=== PATIENT | female | born 1950 | race Caucasian/White ===

== ENCOUNTER 2017-09-01 16:59 | Day surgery (SDC) | payer BC ==
[2017-09-01] MEDS ORDERED: DIPH/PERTUSS(ACELL)/TETANUS VAC/PF 0.5 ML SYR (>=10YO) IM ONE (18:10)
[2017-09-01] MEDS ORDERED: ACETAMINOPHEN 325 MG TABLET PO ONE (18:10)
[2017-09-01] MEDS ORDERED: LIDOCAINE 1% INJ-PF (10 MG/ML) 30 ML SDV INJ ONE (18:32)
--- NOTE | 2017-09-01 18:32 | RADIOLOGY REPORT (SQ) ---
EXAM DESCRIPTION: ELBOW RIGHT OVER 2 VIEWS COMPLETED DATE/TIME: 09/01/2017 6:22 pm REASON FOR STUDY: fall, elbow injury COMPARISON: None. NUMBER OF VIEWS: Four views. TECHNIQUE: AP, lateral, and both oblique radiographic images acquired of the right elbow. LIMITATIONS: None. FINDINGS: MINERALIZATION: Normal. BONES: Under fracture proximal ulna diaphysis extending into the olecranon. Dislocation of the radia l head with probable associated fracture of the capitellum. JOINT: Joint effusion. SOFT TISSUES: Diffuse soft tissue swelling. OTHER: No other significant finding. IMPRESSION: PROXIMAL ULNAR FRACTURE WITH DISLOCATION OF THE RADIAL HEAD AND ADJACENT FRACTURE OF THE CAPITELLUM. TECHNICAL DOCUMENTATION: JOB ID: [id number] [employer]- All Rights Reserved
--- NOTE | 2017-09-01 18:38 | ER Document Report ---
ED Fall - General Chief Complaint: Fall Injury Stated Complaint: FALL/RIGHT ELBOW PAIN Time Seen by Provider: 09/01/17 17:51 Mode of Arrival: Ambulatory Information source: Patient Notes: Patient states that she was looking at a house that her daughter is intending to buy and tripped over a brick ledge walking down the steps. Patient states that she was attempting to prevent injury to her right knee for which she is previously had surgery on and fell on her right outstretched hand. Patient denies any loss of consciousness. Patient does have facial abrasions. Patient complains primarily of right elbow tenderness. Patient with positive deformity TRAVEL OUTSIDE OF THE [place] IN LAST 30 DAYS: No - HPI Occurred: This evening Where: Outdoors Context: Tripped Associated symptoms: None Location of injury/pain: Face, Upper extremity Pain Level: 4 - Related data Allergies/Adverse Reactions: Sulfa (Sulfonamide Antibiotics) Allergy (Verified 09/01/17 17:06) codeine Adverse Reaction (Verified 09/01/17 17:06) morphine Adverse Reaction (Verified 09/01/17 17:06) Past Medical History - General Information source: Patient - Social History Smoking Status: Current Every Day Smoker Chew tobacco use (# tins/day): No Frequency of alcohol use: Heavy Drug Abuse: None Occupation: Retired Lives with: Family Family History: Reviewed & Not Pertinent Patient has suicidal ideation: No Patient has homicidal ideation: No - Past Medical History Cardiac Medical History: Reports: Hx Hypertension Renal/ Medical History: Denies: Hx Peritoneal Dialysis Past Surgical History: Reports: Hx Appendectomy, Hx Orthopedic Surgery - right knee x3, left elbow, Hx Tonsillectomy, Hx Tubal Ligation Review of Systems - Review of Systems Constitutional: No symptoms reported EENT: Other - Laceration to lip with overlying abrasion Cardiovascular: No symptoms reported. denies: Chest pain Respiratory: No symptoms reported. denies: Cough, Short of breath Gastrointestinal: No symptoms reported. denies: Nausea, Vomiting Genitourinary: No symptoms reported Female Genitourinary: No symptoms reported Musculoskeletal: Joint pain - Right elbow. denies: Back pain, Neck pain Skin: Other - Lip laceration, facial abrasions Hematologic/Lymphatic: No symptoms reported Neurological/Psychological: No symptoms reported. denies: Confusion, Weakness, Gait changes, Lost consciousness, Headaches Physical Exam - Vital signs Vitals: Temp Pulse Resp BP Pulse Ox 98.4 F 96 21 H 123/69 100 09/01/17 17:24 09/01/17 17:24 09/01/17 17:24 09/01/17 17:24 09/01/17 17:24 - General General appearance: Appears well, Alert In distress: None - HEENT Head: Abrasions - Abrasions to nose and upper lip, Tenderness. No: Ecchymosis, [place]'s eyes Eyes: Normal Conjunctiva: Normal Extraocular movements intact: Yes Eyelashes: Normal Pupils: PERRL Ears: Normal Nasal: Other - Abrasion to nose Mouth/Lips: Laceration - Laceration to right upper lip area with overlying abrasion.. No: Dental fracture Mucous membranes: Normal Pharynx: Normal Neck: Normal, Supple - Respiratory Respiratory status: No respiratory distress Chest status: Nontender Breath sounds: Normal. No: Rales, Rhonchi, Stridor, Wheezing Chest palpation: Normal - Cardiovascular Rhythm: Regular Heart sounds: S1 appreciated, S2 appreciated Murmur: No Pulses: Normal: Radial - Back Back: Normal, Nontender. No: Vertebra tenderness - Extremities General upper extremity: Tender - Right elbow tenderness General lower extremity: Normal inspection, Normal ROM Shoulder: Normal, Nontender Arm: Normal, Nontender Elbow: Tender - Right elbow, Deformity, Ecchymosis, Instability, Joint effusion , Limited ROM Forearm: Normal, Nontender Wrist: Normal, Nontender Hand: Normal, Nontender Hip: Normal, Nontender Knee: Normal, Nontender Ankle: Normal, Nontender Foot: Normal, Nontender - Neurological Neuro grossly intact: Yes Orientation: AAOx4 [place] Coma Scale Eye Opening: Spontaneous [place] Coma Scale Verbal: Oriented [place] Coma Scale Motor: Obeys Commands [place] Coma Scale Total: 15 - Psychological Associated symptoms: Normal affect, Normal mood - Skin Skin Temperature: Warm Skin Moisture: Dry Skin Color: Normal Course - Re-evaluation Re-evalutation: 09/01/17 18:[address] Massey, Dr. Massey to bedside for examination. Recommends consultation with surgeon. Recommends using absorbable sutures to lip laceration and giving her IV Rocephin at this time. 09/01/17 18:[address] Wilcox, images of patient's x-rays transmitted to him. Dr. Wilcox recommends admission and that he will take patient to the OR tomorrow. Advises ordering basic preop labs, EKG and chest film. Patient updated and is agreeable with this plan of care. 09/01/17 21:30 Dr. Wilcox has yet to evaluate patient. Report and handout given to Vida BROWN - Vital Signs Vital signs: Temp Pulse Resp BP Pulse Ox 98.4 F 96 21 H 123/69 100 09/01/17 17:24 09/01/17 17:24 09/01/17 17:24 09/01/17 17:24 09/01/17 17:24 - Laboratory Result Diagrams: 09/01/17 19:07 09/01/17 19:07 Laboratory results interpreted by me: Labs- Entire Visit 09/01/17 09/01/17 09/01/17 19:07 19:07 19:07 WBC 10.6 H RBC 3.63 L Hgb 12.8 Hct 36.4 MCV 100 H MCH 35.2 H MCHC 35.1 RDW 13.1 Plt Count 261 Seg Neutrophils % 84.5 H Lymphocytes % 11.1 L Monocytes % 3.8 Eosinophils % 0.0 Basophils % 0.6 Absolute Neutrophils 8.9 H Absolute Lymphocytes 1.2 Absolute Monocytes 0.4 Absolute Eosinophils 0.0 Absolute Basophils 0.1 PT 12.9 INR 0.91 APTT 28.7 Sodium 137.1 Potassium 4.3 Chloride 100 Carbon Dioxide 26 Anion Gap 11 BUN 15 Creatinine 0.76 Est GFR ( Amer) > 60 Est GFR (Non-Af Amer) > 60 Glucose 89 Calcium 11.3 H Total Bilirubin 0.5 Direct Bilirubin 0.2 Neonat Total Bilirubin Not Reportable Neonat Direct Bilirubin Not Reportable Neonat Indirect Bili Not Reportable AST 44 H ALT 42 Alkaline Phosphatase 97 Total Protein 7.7 Albumin 4.6 - Diagnostic Test Radiology reviewed: Image reviewed, Reports reviewed Procedures - Laceration/Wound Repair Face Wound length (cm): 2 Wound's Depth, Shape: Irregular Anesthetic type: 1% Lidocaine Wound explored: Clean Wound Repaired With: Sutures Suture Size/Type: 5:0, Vicryl Number of Sutures: 4 Layer Closure?: No Post-procedure NV exam normal: Yes Complications: No Mouth/Teeth picture: 1 - irreg lac 2 - lac Discharge - Discharge Clinical Impression: Fall Qualifiers: Encounter type: initial encounter Qualified Code(s): W19.XXXA - Unspecified fall, initial encounter Ulnar fracture Qualifiers: Encounter type: initial encounter Ulna location: proximal ulna Fracture type: closed Fracture morphology: unspecified fracture morphology Laterality: right Qualified Code(s): S52.001A - Unspecified fracture of upper end of right ulna, initial encounter for closed fracture Lip laceration Qualifiers: Encounter type: initial encounter Qualified Code(s): S01.511A - Laceration without foreign body of lip, initial encounter Condition: Stable Disposition: ADMITTED INPATIENT Admitting Provider: amy Unit Admitted: Medical Floor
[2017-09-01] MEDS ORDERED: CEFTRIAXONE 1 GM/D5W RTU 1 GM/50 ML RTUPB IV ONE (18:50)
[2017-09-01 19:32] LABS: ABSOLUTE BASOPHILS # (AUTO) 0.1 10^3/uL (0.0-0.2); ABSOLUTE LYMPHOCYTES (AUTO) 1.2 10^3/uL (0.5-4.7); ABSOLUTE MONOCYTES (AUTO) 0.4 10^3/uL (0.1-1.4); ABSOLUTE NEUT (AUTO) 8.9 10^3/uL (1.7-8.2); BASOPHILS % (AUTO) 0.6 % (0-2); HEMATOCRIT 36.4 % (36.0-47.0); HEMOGLOBIN 12.8 g/dL (12.0-15.5); LYMPHOCYTES % (AUTO) 11.1 % (13-45); MEAN CORPUSCULAR HEMOGLOBIN 35.2 pg (27.0-33.4); MEAN CORPUSCULAR HGB CONC 35.1 g/dL (32.0-36.0); MEAN CORPUSCULAR VOLUME 100 fl (80-97); MONOCYTES % (AUTO) 3.8 % (3-13); PLATELET COUNT 261 10^3/uL (150-450); RED BLOOD COUNT 3.63 10^6/uL (3.72-5.28); RED CELL DISTRIBUTION WIDTH 13.1 % (11.5-14.0); SEGMENTED NEUTROPHILS % (AUTO) 84.5 % (42-78); TOTAL CELLS COUNTED % (AUTO) 100 %; WHITE BLOOD COUNT 10.6 10^3/uL (4.0-10.5)
[2017-09-01 19:38] LABS: INTERNATIONAL RATION (INR) 0.91; PROTHROMBIN TIME 12.9 SEC (11.4-15.4)
[2017-09-01 19:39] LABS: PARTIAL THROMBOPLASTIN TIME 28.7 SEC (23.5-35.8)
[2017-09-01 19:50] LABS: ALANINE AMINOTRANSFERASE 42 U/L (9-52); ALBUMIN 4.6 g/dL (3.5-5.0); ALKALINE PHOSPHATASE 97 U/L (38-126); ANION GAP 11 (5-19); ASPARTATE AMINO TRANSFERASE 44 U/L (14-36); BILIRUBIN,DIRECT 0.2 mg/dL (0.0-0.4); BILIRUBIN,TOTAL 0.5 mg/dL (0.2-1.3); BLOOD UREA NITROGEN 15 mg/dL (7-20); CALCIUM 11.3 mg/dL (8.4-10.2); CARBON DIOXIDE 26 mmol/L (22-30); CHLORIDE 100 mmol/L (98-107); GLUCOSE 89 mg/dL (75-110); POTASSIUM 4.3 mmol/L (3.6-5.0); SODIUM 137.1 mmol/L (137-145); TOTAL PROTEIN 7.7 g/dL (6.3-8.2)
--- NOTE | 2017-09-01 19:58 | RADIOLOGY REPORT (SQ) ---
EXAM DESCRIPTION: CHEST PA/LAT COMPLETED DATE/TIME: 09/01/2017 7:43 pm REASON FOR STUDY: ulnar fx, preop COMPARISON: None. EXAM PARAMETERS: NUMBER OF VIEWS: two views TECHNIQUE: Digital Frontal and Lateral radiographic views of the chest acquired. RADIATION DOSE: NA LIMITATIONS: none FINDINGS: LUNGS AND PLEURA: No opacities, masses or pneumothorax. No pleural effusion. MEDIASTINUM AND HILAR STRUCTURES: No masses or contour abnormalities. HEART AND VASCULAR STRUCTURES: Heart normal size. No evidence for failure. BONES: No acute findings. HARDWARE: None in the chest. OTHER: No other significant finding. IMPRESSION: NO SIGNIFICANT RADIOGRAPHIC FINDING IN THE CHEST. TECHNICAL DOCUMENTATION: JOB ID: [id number] [employer]- All Rights Reserved
[2017-09-01] MEDS ORDERED: CEFTRIAXONE SODIUM 1,000 MG in DEXTROSE 5%-WATER 50 ML IV ONE (20:00)
[2017-09-01 20:38] LABS: APPEARANCE,URINE SLIGHTLY-CLOUDY; BILIRUBIN,URINE NEGATIVE (NEGATIVE); GLUCOSE, URINE NEGATIVE (NEGATIVE); KETONES,URINE TRACE mg/dL (NEGATIVE); LEUKOCYTE ESTERASE,URINE SMALL (NEGATIVE); NITRITE,URINE NEGATIVE (NEGATIVE); PROTEIN,URINE NEGATIVE (NEGATIVE); URINE SPECIFIC GRAVITY 1.012; UROBILINOGEN,URINE NEGATIVE mg/dL (<2.0)
[2017-09-01 20:44] LABS: COLOR,URINE YELLOW
[2017-09-01] MEDS ORDERED: INFLUENZA ADLT QUAD (36MOS+) 2017-18 VAC 0.5 ML SYR IM PRN (23:45)
[2017-09-01] MEDS ORDERED: IBUPROFEN 800 MG TABLET PO PRN (23:47)
[2017-09-02] MEDS ORDERED: RINGERS SOLUTION,LACTATED 1,000 ML IV PRN (06:47)
[2017-09-02] MEDS ORDERED: CEFAZOLIN 2 GM/D5W RTU 2 GM/50 ML RTUPB IV PRN (06:48)
--- NOTE | 2017-09-02 06:50 | PDOC H&P ---
History of Present Illness Admission Date/PCP: 09/01/17 19:06 Patient complains of: Right arm pain History of Present Illness: ANAHI MCCLAIN is a 66 year old female who tripped and fell landing on an outstretched right arm. She sustained a right elbow injury. She was evaluated in emergency room where a right Monteggia fracture was identified. She is admitted to the orthopedic service for fracture management. Past Medical History Cardiac Medical History: Reports: Hypertension Past Surgical History Past Surgical History: Reports: Appendectomy, Orthopedic Surgery - Right patella fracture, left wrist fracture, Tonsillectomy, Tubal Ligation Social History Information Source: Patient, [facility] Records Lives with: Family Smoking Status: Current Every Day Smoker Cigarettes Packs Per Day: 1 Number of Years Smokin Frequency of Alcohol Use: None Hx Recreational Drug Use: Yes Drugs: None Hx Prescription Drug Abuse: No - Advance Directive Resuscitation Status: Full Code Family History Family History: Reviewed & Not Pertinent Parental Family History Reviewed: No Children Family History Reviewed: No Sibling(s) Family History Reviewed.: No Medication/Allergy Allergies/Adverse Reactions: Sulfa (Sulfonamide Antibiotics) Allergy (Verified 09/01/17 17:06) codeine Adverse Reaction (Verified 09/01/17 17:06) morphine Adverse Reaction (Verified 09/01/17 17:06) Review of Systems All systems: as per H Physical Exam Vital Signs: Temp Pulse Resp BP Pulse Ox 36.6 C 86 18 113/62 95 09/02/17 03:08 09/02/17 03:08 09/02/17 03:08 09/02/17 03:08 09/02/17 03:08 Intake & Output 08/31/17 09/01/17 09/02/17 06:59 06:59 06:59 Weight 67.8 kg Physical Exam: Patient is a middle-aged white female lying in a hospital bed with the right upper extremity splint. She is in minimal discomfort. General appearance: PRESENT: no acute distress, cooperative Head exam: PRESENT: normocephalic Respiratory exam: PRESENT: unlabored Cardiovascular exam: PRESENT: RRR Pulses: PRESENT: +1 pedal pulses bilateral Vascular exam: PRESENT: normal capillary refill GI/Abdominal exam: PRESENT: soft Rectal exam: PRESENT: deferred Extremities exam: PRESENT: other - Right upper extremity immobilized in a splint. Fingertips demonstrate brisk capillary refill and intact sensory examination Neurological exam: PRESENT: alert, awake, oriented to person, oriented to place , oriented to time, oriented to situation. ABSENT: motor sensory deficit Psychiatric exam: PRESENT: appropriate affect, normal mood. ABSENT: homicidal ideation, suicidal ideation Skin exam: PRESENT: dry, intact, warm. ABSENT: cyanosis, rash Results Laboratory Results: 09/01/17 19:07 09/01/17 19:07 09/01/17 09/01/17 09/01/17 19:07 19:07 20:08 WBC 10.6 H RBC 3.63 L Hgb 12.8 Hct 36.4 MCV 100 H MCH 35.2 H MCHC 35.1 RDW 13.1 Plt Count 261 Seg Neutrophils % 84.5 H Lymphocytes % 11.1 L Monocytes % 3.8 Eosinophils % 0.0 Basophils % 0.6 Absolute Neutrophils 8.9 H Absolute Lymphocytes 1.2 Absolute Monocytes 0.4 Absolute Eosinophils 0.0 Absolute Basophils 0.1 Sodium 137.1 Potassium 4.3 Chloride 100 Carbon Dioxide 26 Anion Gap 11 BUN 15 Creatinine 0.76 Est GFR ( Amer) > 60 Est GFR (Non-Af Amer) > 60 Glucose 89 Calcium 11.3 H Total Bilirubin 0.5 AST 44 H ALT 42 Alkaline Phosphatase 97 Total Protein 7.7 Albumin 4.6 Urine Color YELLOW Urine Appearance SLIGHTLY-CLOUDY Urine pH 6.0 Ur Specific [place] 1.012 Urine Protein NEGATIVE Urine Glucose (UA) NEGATIVE Urine Ketones TRACE H Urine Blood NEGATIVE Urine Nitrite NEGATIVE Ur Leukocyte Esterase SMALL H Urine WBC (Auto) 2 Urine RBC (Auto) 0 Impressions: Elbow X-Ray 09/01/17 18:10 IMPRESSION: PROXIMAL ULNAR FRACTURE WITH DISLOCATION OF THE RADIAL HEAD AND ADJACENT FRACTURE OF THE CAPITELLUM. Chest X-Ray 09/01/17 18:37 IMPRESSION: NO SIGNIFICANT RADIOGRAPHIC FINDING IN THE CHEST. Status: Imported from PACS Assessment & Plan - Diagnosis (1) Right Monteggia fracture Qualifiers: Encounter type: initial encounter Fracture type: closed Qualified Code(s) : S52.271A - Monteggia's fracture of right ulna, initial encounter for closed fracture Is this a current diagnosis for this admission?: Yes Plan: 66-year-old white female with a right Monteggia fracture. Plan will be for an open reduction internal fixation under choice anesthesia - Time Time Spent: 50 to 70 Minutes Anticipated discharge: Home Within: within 24 hours
[2017-09-02] MEDS ORDERED: HYDROMORPHONE HCL INJ/PF 2 MG/ML AMPULE ONE (08:22)
[2017-09-02] MEDS ORDERED: ACETAMINOPHEN 100 ML IV ONE (08:23)
[2017-09-02] MEDS ORDERED: MIDAZOLAM 2 MG/2 ML INJ ONE (08:23)
[2017-09-02] MEDS ORDERED: PROPOFOL INJ 200 MG/20 ML VIAL IV ONE (08:23)
[2017-09-02] MEDS ORDERED: FENTANYL CITRATE INJ/PF 100 MCG/2 ML AMPUL ONE (08:23)
--- NOTE | 2017-09-02 08:34 | EKG REPORT ---
SEVERITY:- OTHERWISE NORMAL ECG - SINUS RHYTHM LOW VOLTAGE IN FRONTAL LEADS : Confirmed by: Thiago Lares MD 02-Sep-2017 08:34:06
[2017-09-02] MEDS ORDERED: BUPIVACAINE HCL 0.5%-EPI 1:200000 INJ/PF 30 ML VIAL ONE (08:50)
[2017-09-02] MEDS ORDERED: DIPHENHYDRAMINE HCL 50 MG/ML VIAL IV PRN (09:38)
[2017-09-02] MEDS ORDERED: PROMETHAZINE HCL INJ 25 MG/1 ML VIAL IV PRN (09:38)
[2017-09-02] MEDS ORDERED: FENTANYL CITRATE INJ/PF 100 MCG/2 ML AMPUL IV PRN ×3 (09:38)
--- NOTE | 2017-09-02 09:44 | Operative Report ---
Operative Report DATE OF SURGERY: 09/02/17 PREOPERATIVE DIAGNOSIS: Right Monteggia fracture OPERATION: Open reduction internal fixation right Monteggia fracture. Ulnar nerve neural lysis SURGEON: FRANCINE JOHN ANESTHESIA: GA PROCEDURE: With the patient in a left lateral decubitus decubitus position on the operating table the right upper extremities prepped and draped in sterile fashion. The limb was elevated for exsanguination tourniquet inflated to 250 torr. A longitudinal incision was made beginning just proximal to the olecranon and extending distally along distally along the subcutaneous ulna. The ulnar nerve is dissected out of the cubital tunnel and protected throughout its course during the remainder of the procedure. Sharp dissection was carried incision down to the periosteum. The periosteum was elevated. The limb is distracted and supinated which leads to an audible and palpable reduction of the radial head. Subsequently a long Acumed titanium plate is applied to the surface of the olecranon and ulna. It secured proximally with 3 locking screws. Secured distally with 5 screws. Is checked fluoroscopically and hardware placement satisfactory fracture reduction is near-anatomic. This point the tourniquet is deflated. The wound is irrigated. Hemostasis obtained with electrocautery. The wound was closed in layers with Vicryl followed by janneth. A sterile compressive dressing and posterior plaster splint were applied and the patient was returned to PACU in satisfactory condition.
[2017-09-02] MEDS ORDERED: ONDANSETRON HCL INJ/PF 4 MG/2 ML SDV ONE ×2 (10:05→11:05)
[2017-09-02] MEDS ORDERED: SUCCINYLCHOLINE CHLORIDE INJ 200 MG/10 ML VIAL ONE (10:05)
[2017-09-02] MEDS ORDERED: DEXAMETHASONE SOD PHOSPHATE INJ 4 MG/1 ML VIAL ONE (10:05)
[2017-09-02] MEDS ORDERED: LIDOCAINE 2% INJ-PF (20 MG/ML) 2 ML AMPUL ONE (10:05)
[2017-09-02] MEDS ORDERED: PHENYLEPHRINE HCL INJ/PF 10 MG/1 ML SDV ONE (10:05)
[2017-09-02] MEDS ORDERED: ONDANSETRON 4 MG TAB.RAPDIS SL PRN (10:44)
[2017-09-02] MEDS ORDERED: HYDROCODONE/ACETAMINOPHEN 5-325 MG TABLET PO PRN (10:44)
[2017-09-02] MEDS ORDERED: PROMETHAZINE HCL INJ 25 MG/1 ML VIAL ONE (11:21)
[2017-09-02 15:29] VITALS: BP 113/62
--- NOTE | 2017-09-02 18:10 | RADIOLOGY REPORT (SQ) ---
EXAM DESCRIPTION: ELBOW RIGHT AP/LAT; NO CHG FLUORO COMPLETED DATE/TIME: 09/02/2017 5:28 pm REASON FOR STUDY: ORIF RT ELBOW COMPARISON: Right elbow films 09/01/2017 FLUOROSCOPY TIME: 0.1 minutes 9 digital radiographic images saved to PACS. TECHNIQUE: Intra-operative images acquired during surgical procedure to evaluate progress. NUMBER OF IMAGES: 9 digital C-arm images LIMITATIONS: None. FINDINGS: Intra procedural imaging and fluoro during ORIF of a proximal right ulna comminuted fractu re in good alignment IMPRESSION: Intra procedural imaging and fluoro COMMENT: Quality ID [id number]: Final reports for procedures using fluoroscopy that document radiation exp osure indices, or exposure time and number of fluorographic images (if radiation exposure indices are not available) Please consult full operative report of the attending physician for description of the procedure. TECHNICAL DOCUMENTATION: JOB ID: [id number] [employer]- All Rights Reserved
== END 2017-09-02 15:50 | disposition home or self-care (01) ==
LOC: ER 16:59 → EH 19:06 → ER 19:06 → UNDOADMIN 19:06 → OROUT 19:06 → EH 22:41 → 2S 22:41 → UNDODISIN 09-02 15:50 → OROUT 09-02 15:50
PROVIDERS: ATTEND Orthopaedic Surgery
PROC: 0PSH04Z Reposition Right Radius with Internal Fixation Device, Open Approach (ICD-10-PCS; principal; 2017-09-01)
PROC: 0PSK04Z Reposition Right Ulna with Internal Fixation Device, Open Approach (ICD-10-PCS; 2017-09-01)
DX: S52.271A Monteggia's fracture of right ulna, initial encounter for closed fracture (principal); W01.0XXA Fall on same level from slipping, tripping and stumbling without subsequent striking against object, initial encounter; Z23 Encounter for immunization; F17.210 Nicotine dependence, cigarettes, uncomplicated; I10 Essential (primary) hypertension; Z88.5 Allergy status to narcotic agent; Z88.2 Allergy status to sulfonamides
CPT/HCPCS: 93005; 99285; 90471; 36415; 85025; 85610; 85730; 80053; 81001; 71046; 73070; 73080; 90715; 90686; 93010; 24635; J2250; J3490 ×3; J1100; J3010; J1170; J2370; J2550; J0330; J0696; J2405; J7120; J2704; J0690; J0131; 01740